=== PATIENT | male | born 1955 | race Caucasian/White ===

== ENCOUNTER → 2018-09-11 | Outpatient (CLI) | payer OTHER ==
[~2018-09-11] MED LIST: CALC-76 PO; GLUC1TAB PO; IOHEXOL 350 MG/ML 150 ML (OMNIPAQUE 350) VIAL IV ONE; NAPR220T76 PO; NS 100 ML (IVPB) BAG IV ONE; OXYC-12 PO; RECEIVED CONTRAST 20 ML VIAL IV SCH; VIT1TABL82 PO; [UNRECOGNIZED DRUG - OTHER] TOP
[2018-09-11 09:17] LABS: BUN/CREATININE RATIO 12; CREATININE SERUM 1.06 MG/DL (0.60-1.30); GFR ESTIMATED > 60
--- NOTE | 2018-09-11 16:49 | Diagnostic Imaging Report ---
INDICATION: Hypertension and claudication and increased serum lipids. CTA of the abdomen and pelvis and lower extremities performed with IV contrast bolus and axial slices and MIP reconstructions. FINDINGS: Visualized portions of the liver and gallbladder were normal. The entire liver was not imaged. The adrenals and pancreas were normal. There is a prominent cyst in the right kidney measuring 6.5 cm. There is no retroperitoneal mass or adenopathy. There is no ascites or abnormal fluid collection. There are uncomplicated sigmoid diverticula. There is prostatic enlargement. There is a right knee prosthesis. CTA images demonstrate the abdominal aorta to be patent and nonaneurysmal. There is no significant plaquing in the infrarenal aorta. The common iliac arteries and internal iliac arteries and external iliac arteries are patent and without significant plaquing or narrowing. The common femoral arteries and profunda femoris arteries are patent. The superficial femoral arteries are patent on both sides with minor plaquing in the mid SFA on both sides. There is no significant stenosis. The popliteal arteries on both sides are patent. All three tibial vessels on both sides are patent and without stenosis or occlusion. IMPRESSION: No significant peripheral vascular disease. There is no major vessel occlusion or stenosis. There is minor plaquing in the mid SFA on both sides. A prominent right renal cyst is incidentally noted. There is no acute abnormality. Dictated by: Dictated on workstation # [id number]
== END ==
LOC: RAD 08:39
PROVIDERS: ATTEND Internal Medicine Cardiovascular Disease
DX: I70.203 Unspecified atherosclerosis of native arteries of extremities, bilateral legs (principal); N28.1 Cyst of kidney, acquired; I10 Essential (primary) hypertension; E78.2 Mixed hyperlipidemia; G47.33 Obstructive sleep apnea (adult) (pediatric); J44.9 Chronic obstructive pulmonary disease, unspecified
CPT/HCPCS: 36415; 82565; 84520

== ENCOUNTER → 2018-09-12 | Outpatient (CLI) | payer OTHER ==
[~2018-09-12] VITALS: Ht 182.9 cm; Wt 108.4 kg
[~2018-09-12] MED LIST changes: +CATHETER FLUSH 10 ML SYR IV PRN; -IOHEXOL 350 MG/ML 150 ML (OMNIPAQUE 350) VIAL IV ONE; -NS 100 ML (IVPB) BAG IV ONE; -RECEIVED CONTRAST 20 ML VIAL IV SCH; +REGADENOSON 0.4 MG/5 ML SYR (LEXISCAN) IV ONE
[2018-09-12 10:10] VITALS: BP 134/82
--- NOTE | 2018-09-12 15:44 | STRESS TEST ---
DATE OF SERVICE: 09/12/2018 LEXISCAN MYOVIEW STRESS TEST REPORT REFERRING PHYSICIAN: Dr. Tim. FINDINGS: Baseline heart rate is 68. Baseline blood pressure is 139/84. Baseline EKG is sinus rhythm with no ischemic changes. SUMMARY: The patient was injected with 10.93 mCi of technetium-99 Myoview and the resting images were obtained. Then, the patient started exercising with a baseline heart rate, blood pressure and EKG mentioned above. The patient was able to exercise for 4 minutes and 40 seconds on a standard Michael protocol, did not achieve the target heart rate. Test was terminated and converted to Lexiscan Myoview stress test. The patient received 0.4 mg of Lexiscan followed by 30.5 mCi of technetium-99 Myoview. Throughout the test, there were no EKG changes. The resting and stress images were reviewed and compared in the short axis, horizontal long axis and vertical long axis views. Review of the images showed good radiotracer uptake with diaphragmatic attenuation, no significant ischemia or infarction. SSS is 0. TID value is 1.04. On the gated images, the left ventricle appeared to be in normal size with normal contractility. Calculated ejection fraction is 59%. CONCLUSION: 1. The patient was able to exercise for 4 minutes 40 seconds on a standard Michael protocol, did not achieve the target heart rate, test was terminated and converted to Lexiscan Myoview stress test. 2. The patient tolerated the Lexiscan well. 3. Diaphragmatic attenuation with typical male pattern with no significant ischemia or infarction on SPECT images. 4. Normal left ventricular size with normal contractility and calculated ejection fraction of 59%. Job ID: [id number] DocumentID: [id number] Dictated Date: 09/12/2018 15:21:18 Consulting Business Developer Date: 09/12/2018 15:43:58 Dictated By: AUGUSTA HOLMAN MD
== END ==
LOC: CARD 07:46
PROVIDERS: ATTEND Internal Medicine Cardiovascular Disease
DX: I73.9 Peripheral vascular disease, unspecified (principal); I10 Essential (primary) hypertension; E78.2 Mixed hyperlipidemia; J44.9 Chronic obstructive pulmonary disease, unspecified; G47.33 Obstructive sleep apnea (adult) (pediatric)
CPT/HCPCS: 78452; 93017

== ENCOUNTER → 2018-09-12 | Outpatient (CLI) | payer OTHER ==
[~2018-09-12] MED LIST changes: -CATHETER FLUSH 10 ML SYR IV PRN; -REGADENOSON 0.4 MG/5 ML SYR (LEXISCAN) IV ONE
== END ==
LOC: CARD 12:16
PROVIDERS: ATTEND Internal Medicine Cardiovascular Disease
DX: I73.9 Peripheral vascular disease, unspecified (principal); I10 Essential (primary) hypertension; E78.2 Mixed hyperlipidemia; J44.9 Chronic obstructive pulmonary disease, unspecified; G47.33 Obstructive sleep apnea (adult) (pediatric)
CPT/HCPCS: 93306

== ENCOUNTER → 2019-04-09 | Outpatient (CLI) | payer OTHER ==
[2019-04-09 11:39] LABS: ABG BASE EXCESS -1.1 MMOL/L (-2.5-2.5); ABG OXYGEN SATURATION 98 % (94-100); ABG PCO2 39 MMHG (35-45); ABG PH 7.39 (7.37-7.43); ABG PO2 95 MMHG (79-93); ABG TCO2 24.3 MMOL/L (21.0-31.0)
[2019-04-09 11:40] LABS: ALLENS TEST YES-POS; INSPIRED O2 ROOM AIR; PATIENT TEMP 99.1; VENTILATOR NO
== END ==
LOC: RT 11:13
PROVIDERS: ATTEND Nurse Practitioner Family
DX: J30.9 Allergic rhinitis, unspecified (principal); G47.33 Obstructive sleep apnea (adult) (pediatric); Z72.0 Tobacco use
CPT/HCPCS: 36600; 82805

== ENCOUNTER → 2019-05-15 | Outpatient (CLI) | payer OTHER ==
[~2019-05-15] MED LIST changes: +CATHETER FLUSH 10 ML SYR IV PRN; +HOLD METFORMIN - RECEIVED CONTRAST 20 ML VIAL IV SCH; +IOHEXOL 350 MG/ML 100 ML (OMNIPAQUE 350) VIAL IV ONE; +NS 100 ML (IVPB) BAG IV ONE; +RT-ALBUTEROL SULF 2.5 MG/3 ML PRE-MIX VIAL INH ONE
[2019-05-15 12:35] LABS: CREATININE SERUM 1.24 MG/DL (0.60-1.30)
--- NOTE | 2019-05-15 16:36 | Diagnostic Imaging Report ---
PROCEDURE: CT chest with contrast only. TECHNIQUE: Multiple contiguous axial images were obtained through the chest after administration of intravenous contrast. Auto Exposure Controls were utilized during the CT exam to meet ALARA standards for radiation dose reduction. INDICATION: Dyspnea. COMPARISON: None available. FINDINGS: No significant adenopathy within the chest. Two-vessel aortic arch is noted. No aneurysmal dilatation of the thoracic aorta. The heart is within normal limits in size. No pericardial effusion. No pleural effusion. No pneumothorax. Minimal bibasilar scarring and/or atelectasis. The lungs otherwise appear clear. The airway is patent. Fatty infiltration of the liver. The visualized upper abdomen is otherwise unremarkable. Scattered osseous degenerative changes without acute osseous abnormality. IMPRESSION: No acute abnormality. Fatty infiltration of the liver. Dictated by: Dictated on workstation # [id number]
== END ==
LOC: RAD 11:52
PROVIDERS: ATTEND Nurse Practitioner Family
DX: J30.9 Allergic rhinitis, unspecified (principal); K76.0 Fatty (change of) liver, not elsewhere classified; G47.33 Obstructive sleep apnea (adult) (pediatric); Z72.0 Tobacco use
CPT/HCPCS: 36415; 71260; 82565; 84520; 94060; 94726; 94729

== ENCOUNTER 2019-09-10 10:45 | Outpatient (RCR) | payer OTHER ==
--- NOTE | 2019-06-26 10:17 | NUR ---
Pt contacted me today to let me know he is ok with going ahead and starting pulmonary rehab. I had contacted pt last week to let him know that his insurance stated they would cover 30% until July 2019, then he would be responsible for 100% starting in July 2019, until deductible met again, then 30%. After he and his checked with personal financial planner, pt said he would be ok to go ahead and start. Pt is aware of deductible to meet starting July 2019; and his responsibility.
[2019-07-16 10:40] VITALS: BP 127/97
[2019-07-16 11:30] VITALS: BP 130/80
[2019-07-18 10:45] VITALS: BP 140/60
[2019-07-18 11:55] VITALS: BP 130/60
[2019-07-23 10:45] VITALS: BP 138/90
[2019-07-23 11:57] VITALS: BP 122/90
[2019-07-25 10:45] VITALS: BP 133/60
[2019-07-25 11:55] VITALS: BP 120/60
[2019-07-30 10:45] VITALS: BP 140/80
[2019-07-30 11:53] VITALS: BP 130/60
[2019-08-01 10:35] VITALS: BP 140/90
[2019-08-01 11:45] VITALS: BP 120/76
[2019-08-06 10:30] VITALS: BP 118/90
[2019-08-06 11:40] VITALS: BP 130/60
[2019-08-08 10:45] VITALS: BP 138/82
[2019-08-08 11:30] VITALS: BP 140/50
[2019-08-13 10:30] VITALS: BP 130/90
[2019-08-13 11:50] VITALS: BP 110/88
[2019-08-15 10:20] VITALS: BP 137/88
[2019-08-15 11:18] VITALS: BP 122/81
[2019-08-20 10:45] VITALS: BP 130/87
[2019-08-20 11:54] VITALS: BP 130/93
[2019-08-22 10:30] VITALS: BP 140/60
[2019-08-22 11:50] VITALS: BP 172/60
[2019-08-27 10:45] VITALS: BP 112/89
[2019-08-27 11:44] VITALS: BP 130/60
[2019-08-29 10:35] VITALS: BP 121/90
[2019-08-29 11:55] VITALS: BP 118/80
[2019-09-03 10:30] VITALS: BP 138/60
[2019-09-03 11:50] VITALS: BP 130/72
[2019-09-05 10:33] VITALS: BP 138/88
[2019-09-05 12:05] VITALS: BP 140/60
[2019-09-10 10:40] VITALS: BP 160/60
[~2019-09-10 10:45] MED LIST changes: -CATHETER FLUSH 10 ML SYR IV PRN; -HOLD METFORMIN - RECEIVED CONTRAST 20 ML VIAL IV SCH; -IOHEXOL 350 MG/ML 100 ML (OMNIPAQUE 350) VIAL IV ONE; -NS 100 ML (IVPB) BAG IV ONE; -RT-ALBUTEROL SULF 2.5 MG/3 ML PRE-MIX VIAL INH ONE
[2019-09-10 11:40] VITALS: BP 128/50
[2019-09-12 10:30] VITALS: BP 125/82
[2019-09-12 11:48] VITALS: BP 127/87
== END 2019-09-17 | disposition home or self-care (01) ==
LOC: PULM 10:45
PROVIDERS: ATTEND Nurse Practitioner Family
DX: J44.9 Chronic obstructive pulmonary disease, unspecified (principal)
CPT/HCPCS: 99211

== ENCOUNTER → 2020-05-18 | Outpatient (CLI) | payer OTHER ==
--- NOTE | 2020-05-18 13:01 | Diagnostic Imaging Report ---
CT CHEST SCREENING WO TECHNIQUE: Low-dose unenhanced CT of the chest was performed according to the screening protocol. Coronal MIP and sagittal MPR reformats are created. Automatic exposure controls were utilized to keep dose as low as reasonably achievable. INDICATION: 44 pack year history of smoking. Quit smoking one year ago. COMPARISON: CT chest of 05/15/2019 FINDINGS: Pulmonary findings: No endoluminal nodule within the trachea. No pulmonary mass or consolidation. Scattered peripheral groundglass opacities have developed and are most indicative of sequelae of infection/inflammation. No pulmonary nodule or concerning groundglass nodules. Mild centrilobular emphysema is similar appearance to prior exam. Extrapulmonary findings: No pleural effusion or axillary lymphadenopathy. No mediastinal, discrete hilar or juxtaphrenic lymphadenopathy. Heart is normal in size without pericardial effusion. Dense coronary artery calcifications are unchanged. Esophagus is unremarkable. Stable low-attenuation liver raises possibility hepatic steatosis. No worrisome focal osseous lesions. IMPRESSION: 1. Screening exam is negative for features of clinically active lung cancer. 2. Multifocal subpleural groundglass opacities are new since exam 1 year prior, and/or most compatible with with sequelae of infectious/inflammatory process. Lung-RADS category: 2 - Benign appearance or behavior Recommendations: Continued annual screening with low-dose CT in 12 months. Dictated by: Dictated on workstation # [id number]
== END ==
LOC: RAD 11:45
PROVIDERS: ATTEND Nurse Practitioner Family
DX: R91.8 Other nonspecific abnormal finding of lung field (principal); Z72.0 Tobacco use

== ENCOUNTER → 2020-08-13 | Outpatient (CLI) | payer OTHER ==
[~2020-08-13] MED LIST changes: +RT-ALBUTEROL SULF 2.5 MG/3 ML PRE-MIX VIAL INH ONE
== END ==
LOC: RT 10:30
PROVIDERS: ATTEND Nurse Practitioner Family
DX: J44.9 Chronic obstructive pulmonary disease, unspecified (principal)
CPT/HCPCS: 94060; 94726; 94729

== ENCOUNTER → 2020-08-21 | Outpatient (CLI) | payer OTHER ==
[~2020-08-21] MED LIST changes: +CATHETER FLUSH 10 ML SYR IV PRN; +HOLD METFORMIN - RECEIVED CONTRAST 20 ML VIAL IV SCH; +IOHEXOL 350 MG/ML 100 ML (OMNIPAQUE 350) VIAL IV ONE; +NS 100 ML (IVPB) BAG IV ONE; -RT-ALBUTEROL SULF 2.5 MG/3 ML PRE-MIX VIAL INH ONE
[2020-08-21 08:25] LABS: BUN/CREATININE RATIO 13; CREATININE SERUM 1.16 MG/DL (0.60-1.30); GFR ESTIMATED > 60
--- NOTE | 2020-08-21 09:07 | Diagnostic Imaging Report ---
PROCEDURE: CT chest with contrast only. TECHNIQUE: Multiple contiguous axial images were obtained through the chest after administration of intravenous contrast. Auto Exposure Controls were utilized during the CT exam to meet ALARA standards for radiation dose reduction. DATE: August 21, 2020. COMPARISON: CT chest May 15, 2019. CT chest May 18, 2020. INDICATION: 65-year-old male, shortness of breath on exertion. FINDINGS: There are upper lobe predominant findings of centrilobular and paraseptal emphysema. There is a 2 mm noncalcified left upper lobe pulmonary nodule on axial image 51 which is most likely unchanged since May 15, 2019. There is no otherwise identified pulmonary nodule. There is no lung mass. There is no otherwise noted focal airspace consolidation. There is no pneumothorax. There is no pleural effusion. The central airways are patent. There is no identified central pulmonary embolus. There is air in the main pulmonary artery likely relating to venous access. The main pulmonary artery diameter is within normal limits. The heart is not enlarged. There is no pericardial effusion. There are coronary artery calcifications and additional areas of atherosclerotic disease. There is no identified abnormally enlarged mediastinal, hilar, or axillary lymph node meeting CT size criteria for adenopathy. There is diffuse fatty infiltration of the liver. Additional evaluation of the imaged portions of the upper abdomen is unremarkable. There is no identified acute bony abnormality. There are mild disc degenerative changes of the thoracic spine. IMPRESSION: CT CHEST. 1. No identified acute cardiopulmonary abnormality. 2. Mild upper lobe predominant findings of centrilobular and paraseptal emphysema. 3. Coronary artery calcifications and additional areas of atherosclerotic disease. 4. Diffuse fatty infiltration of the liver. Dictated by: Dictated on workstation # [id number]
== END ==
LOC: RAD 08:45
PROVIDERS: ATTEND Nurse Practitioner Family
DX: J43.2 Centrilobular emphysema (principal); I25.10 Atherosclerotic heart disease of native coronary artery without angina pectoris; K76.0 Fatty (change of) liver, not elsewhere classified
CPT/HCPCS: 36415; 71260; 82565; 84520

== ENCOUNTER → 2023-04-13 | Outpatient (CLI) | payer MEDICARE, OTHER ==
[~2023-04-13] MED LIST changes: -CATHETER FLUSH 10 ML SYR IV PRN; -HOLD METFORMIN - RECEIVED CONTRAST 20 ML VIAL IV SCH; -IOHEXOL 350 MG/ML 100 ML (OMNIPAQUE 350) VIAL IV ONE; -NS 100 ML (IVPB) BAG IV ONE
== END ==
LOC: CARD 11:22
PROVIDERS: ATTEND Internal Medicine Cardiovascular Disease
DX: I10 Essential (primary) hypertension (principal)
CPT/HCPCS: 93306